=== PATIENT | male | born 2000 | race Two or more races ===

== ENCOUNTER → 2024-06-06 | Outpatient (CLI) | payer MEDICAID, SELFPAY ==
--- NOTE | 2024-06-06 16:41 | XR_ITS ---
Examination: PA lateral chest 2 views Technique: Upright PA lateral chest 2 views Exam date and time: June 06, 2024 1712 hrs. Indications: Coughing beginning 2 months ago. Findings: Extensive bilateral nodular infiltrate Normal heart size Prominent hilar regions The osseous structures are intact Impression: Extensive nodular bilateral pneumonia, differential would include active tuberculosis
== END | disposition home or self-care (01) ==
LOC: CDIM 16:35
PROVIDERS: PCP Physician Assistant; Referring Provider Physician Assistant; Visit Provider Physician Assistant
DX: J18.9 Pneumonia, unspecified organism (principal)
CPT/HCPCS: 71046

== ENCOUNTER → 2024-11-28 | Outpatient (CLI) | payer MEDICAID, SELFPAY ==
--- NOTE | 2024-11-28 12:42 | XR_ITS ---
Examination: PA lateral chest 2 views TECHNIQUE: Upright PA lateral chest 2 views Date and time: The 2024 1332 hours Comparison June 06, 2024 FINDINGS: The patient's nodular infiltrate has almost completely resolved No new pneumonia Normal heart size IMPRESSION: The patient's nodular infiltrate has almost completely resolved
== END | disposition home or self-care (01) ==
PROVIDERS: PCP Physician Assistant; Referring Provider Physician Assistant; Visit Provider Physician Assistant
DX: B38.9 Coccidioidomycosis, unspecified (principal)
CPT/HCPCS: 71046